=== PATIENT | female | born 1950 | race Caucasian/White ===

== ENCOUNTER 2017-08-18 13:03 | Inpatient (IN) | payer OTHER ==
[2017-08-18] VITALS (9 sets, daily range): BP systolic 166–223; BP diastolic 98–148
[~2017-08-18] VITALS: Ht 163.8 cm; Wt 70.1 kg
[~2017-08-18 13:03] MED LIST: NORVASC5 MG PO
[2017-08-18 14:18] LABS: BILIRUBIN NEGATIVE (NEGATIVE); BLOOD 2+ (NEGATIVE); CLARITY CLEAR (CLEAR); COLOR YELLOW (YELLOW); GLUCOSE TRACE (NEGATIVE); KETONE NEGATIVE (NEGATIVE); LEUKO ESTERASE NEGATIVE (NEGATIVE); NITRITE NEGATIVE (NEGATIVE); PH 7.5 (5.0-9.0); UROBILINOGEN 0.2 E.U./dl (0.2-1.0)
[2017-08-18 14:24] LABS: WBC 16-20 wbc/hpf (0-5)
[2017-08-18 14:25] LABS: BACTERIA 2+; URINE AMPHETAMINES < 1000 (1000ng/ml); URINE BARBITURATES < 200 (200ng/ml); URINE BENZODIAZEPINES < 200 (200ng/ml); URINE CANNABINOIDS (THC) < 50 (50ng/ml); URINE COCAINE > 300 (300ng/ml); URINE METHADONE < 300 (300ng/ml); URINE OPIATES > 300 (300ng/ml); URINE PHENCYCLIDINE < 25 (25ng/ml)
[2017-08-18 15:01] LABS: BASO % 0.3 % (0.0-1.0); HEMATOCRIT 49.9 % (37.0-47.0); HEMOGLOBIN 17.7 g/dl (12.0-16.0); LYMPH # 1.2 10*3/uL (1.3-4.4); MEAN CELL VOLUME 85.7 fl (81.0-99.0); MEAN CORPUSCULAR HGB 30.4 pg (27.0-31.0); MEAN CORPUSCULAR HGB CONC 35.5 g/dl (33.0-37.0); MONO # 0.4 10*3/uL (0.1-1.0); MONO % 2.4 % (3.0-9.0); PLATELET COUNT AUTOMATED 213 10*3/uL (130-400); RED BLOOD COUNT 5.82 10*6/uL (4.10-5.10); RED CELL DISTRI WIDTH 13.3 % (0-14.5); WHITE BLOOD COUNT 14.7 10*3/uL (4.8-10.8)
[2017-08-18 15:15] LABS: ALBUMIN 3.8 gm/dl (3.1-4.5); ALKALINE PHOSPHATASE 107 U/L (45-117); BUN 9 mg/dl (7-24); CHLORIDE 101 mmol/L (98-107); CREATININE 0.84 mg/dL (0.55-1.02); POTASSIUM 2.5 mmol/L (3.5-5.1); SGOT/AST 36 IU/L (3-35); SGPT/ALT 19 U/L (12-78); SODIUM 138 mmol/L (136-145); TOTAL PROTEIN 9.6 gm/dL (6.4-8.2)
[2017-08-18] MEDS ORDERED: NEURONTIN300 MG PO (17:02)
[2017-08-19] VITALS: BP 160/111
== END 2017-08-19 00:30 | disposition short-term general hospital (02) | DRG 896 ==
LOC: ED 13:03 → EDHOLD 16:11 → ICCU 16:37
PROVIDERS: Emergency Medicine
PROC: 02HV33Z Insertion of Infusion Device into Superior Vena Cava, Percutaneous Approach (ICD-10-PCS; principal; 2017-08-18)
DX: F11.23 Opioid dependence with withdrawal (principal); G93.41 Metabolic encephalopathy; D75.1 Secondary polycythemia; R65.10 Systemic inflammatory response syndrome (SIRS) of non-infectious origin without acute organ dysfunction; D72.89 Other specified disorders of white blood cells; I10 Essential (primary) hypertension; F14.10 Cocaine abuse, uncomplicated; E87.6 Hypokalemia; I16.0 Hypertensive urgency; R73.9 Hyperglycemia, unspecified; R74.0 Nonspecific elevation of levels of transaminase and lactic acid dehydrogenase [LDH]; R80.9 Proteinuria, unspecified; R31.9 Hematuria, unspecified; R82.71 Bacteriuria; R32 Unspecified urinary incontinence; F15.10 Other stimulant abuse, uncomplicated; Z79.899 Other long term (current) drug therapy; Z88.6 Allergy status to analgesic agent; Z72.0 Tobacco use; Z71.6 Tobacco abuse counseling; Z80.9 Family history of malignant neoplasm, unspecified; Z82.49 Family history of ischemic heart disease and other diseases of the circulatory system